=== PATIENT | male | born 1965 | race Caucasian/White ===

== ENCOUNTER 2024-01-31 21:49 | Emergency (ER) | payer OTHER, SELFPAY ==
[2024-01-31 21:54] VITALS: BP 86/65; PULSE 92; RESP 18; TEMP 36.3; O2SAT 93
[2024-01-31 22:15] VITALS: BP 104/69; PULSE 147; RESP 27; O2SAT 91
--- NOTE | 2024-01-31 22:35 | EKG12_ITS ---
Test Reason : PALPS Blood Pressure : */* mmHG Vent. Rate : 130 BPM Atrial Rate : * BPM P-R Int : * ms QRS Dur : 88 ms QT Int : 318 ms P-R-T Axes : * 20 38 degrees QTcB Int : 467 ms Atrial fibrillation with rapid ventricular response Abnormal ECG Confirmed by Tomas Walden ([id number]), associate editor STEFANIE KINGSTON ([id number]) on 02/02/2024 9:07:06 AM Referred By: Confirmed By: Tomas Walden
[2024-01-31 22:36] VITALS: BMI 33.0
--- NOTE | 2024-01-31 22:42 | RAD_ITS ---
INDICATION: Atrial fibrillation with RVR EXAMINATION/TECHNIQUE: X-RAY - XR Chest 1 View COMPARISON: FINDINGS: LINES/DEVICES: None. LUNGS: No consolidation, edema or effusion. Basilar atelectasis. No pneumothorax. MEDIASTINUM AND CARDIOVASCULAR STRUCTURES: Cardiac silhouette not enlarged. Central airways and mediastinal contour are unremarkable. BONES AND SOFT TISSUES: Degenerative vertebral changes. RAD/Chest 1 View (Portable) IMPRESSION: Basilar atelectasis. Electronically Signed: Nirav Beach DO at 23:19 EST ,
[2024-01-31 22:46] LABS: Absolute Neutrophil Count 3.2 X10^3/uL (2.0-7.7); Basophil# 0.07 X10^3/uL; Eosinophil# 0.22 X10^3/uL; Eosinophils% 3.2 % (0-5); Hematocrit 40.3 % (40-54); Hemoglobin 14.2 g/dL (13.0-16.5); Lymphocyte % 38.4 % (19-41); Mean Corp Hgb Conc 35.2 g/dL (32-36); Mean Corpuscular Hgb 32.6 pg (27.0-32.0); Mean Corpuscular Volume 92.4 fL (80-94); Monocyte# 0.64 X10^3/uL; Monocyte% 9.5 % (0-10); NRBC Flagged by Analyzer 0 % (0-5); Neutrophil # 3.23 X10^3/uL (2.7-7.7); Neutrophil % 47.8 % (47-70); Platelet Count 280 K/mm3 (150-450); RBC Distribution Width CV 12.7 % (11.6-14.6); RBC Distribution Width SD 43.3 fl (35.1-43.9); Red Blood Count 4.36 M/mm3 (4.6-6.2); White Blood Count 6.8 K/mm3 (4.4-11.0)
[2024-01-31 22:56] LABS: Prothrombin Time (Protime)PT. 12.7 SECONDS (11.7-14.9)
[2024-01-31 22:57] VITALS: BP 113/66; PULSE 160; RESP 21; O2SAT 94
[2024-01-31 22:57] LABS: Partial Thromboplast Time 28.9 Seconds (24.1-36.2)
[2024-01-31] MEDS: dilTIAZem 25 MG/5 ML Vial 20 MG IV BOLUS (23:07)
[2024-01-31 23:08] LABS: BNP,B-Type NATRIURETIC PEPTIDE 50.7 pg/mL (0-100)
[2024-01-31 23:14] VITALS: BP 102/62; PULSE 103; RESP 16; O2SAT 94
[2024-01-31 23:15] LABS: BUN 18 mg/dL (7-18); BUN/Creat Ratio 18.8 RATIO (10-20); Creatinine, Serum 0.96 mg/dL (0.70-1.30); Estimated Creatinine Clearance 102.77 ml/min; Glucose 113 mg/dL (74-106)
[2024-01-31 23:16] LABS: Calcium,Total 9.1 mg/dL (8.5-10.1); Chloride 106 mmol/L (98-107); Potassium 3.5 mmol/L (3.5-5.1); Sodium Level 139 mmol/L (136-145); Troponin-I HS 5 pg/mL (3.0-78.0)
--- NOTE | 2024-01-31 23:41 | EKG12_ITS ---
Test Reason : REPEAT Blood Pressure : */* mmHG Vent. Rate : 78 BPM Atrial Rate : 78 BPM P-R Int : 162 ms QRS Dur : 92 ms QT Int : 360 ms P-R-T Axes : 32 19 47 degrees QTcB Int : 410 ms Normal sinus rhythm Normal ECG Confirmed by Tomas Walden ([id number]), assignment editor STEFANIE KINGSTON ([id number]) on 02/02/2024 9:07:44 AM Referred By: Confirmed By: Tomas Walden
--- NOTE | 2024-01-31 23:41 | ED.VIS.CHEST ---
HPI History of Present Illness Chief Complaint: Palpitations Narrative Narrative: Chief complaint and HPI: Palpitations. 58-year-old male with history of paroxysmal atrial fibrillation not on anticoagulation but on aspirin presents for evaluation of palpitations. Patient states that he is usually in normal sinus rhythm but occasionally converts into atrial fibrillation with RVR. Has never had an ablation. Has never required electrical cardioversion. Patient does not follow with a short haul driver and instead follows with his PCP. He is on metoprolol 25 mg daily. Patient states that this evening he could tell that he converted into atrial fibrillation. He states that he waited it out hoping that it would resolve however it did not which is why he presents today. Denies any shortness of breath, chest pain, nausea, vomiting. Review of systems: See HPI Medications: As listed on the chart Allergies: As listed on the chart PFSH: Per chart Vital signs: As listed on the chart. Reviewed. Physical exam: Gen: A&O x3, NAD Head: Normocephalic, atraumatic Eyes: No sclera icterus, conjunctiva clear ENT: Moist mucous membranes Neck: Trachea midline, No JVD CV: Tachycardic, irregular rhythm, no murmurs, no peripheral edema Resp: Lungs CTA BL, no w/r/c GI: Abd soft, non-distended, non-tender, no r/r/g Musc: Full ROM, no deformity Skin: Warm, dry Neuro: Alert, oriented, grossly intact, sensation intact Psych: Cooperative, appropriate mood and affect [facility] Medical History (Updated 01/31/24 @ 23:[address] Bert Landeros, ) Toenail fungus A-fib Allergy/AdvReac Type Severity Reaction Status Date / Time No Known Allergies Allergy Verified 01/31/24 21:54 Social History Smoking Status: Former smoker EXAM Physical Exam Const Vital Signs: 01/31/24 21:54 01/31/24 22:13 01/31/24 22:15 Temperature 97.4 F L Temperature Source Temporal Pulse Rate 92 147 H Respiratory Rate 18 27 H Respiratory Effort Normal Blood Pressure 86/65 L 104/69 Blood Pressure Mean 72 80 Pulse Ox 93 91 Oxygen Delivery Method Room Air Room Air 01/31/24 22:57 01/31/24 23:14 Temperature Temperature Source Pulse Rate 160 H 103 H Respiratory Rate 21 H 16 Respiratory Effort Blood Pressure 113/66 102/62 Blood Pressure Mean 81 75 Pulse Ox 94 94 Oxygen Delivery Method Room Air Room Air MDM MDM MDM Narrative Medical decision making narrative: 58-year-old male with history of paroxysmal atrial fibrillation not on anticoagulation but on aspirin presents for evaluation of palpitations. Patient states he feels that he is in atrial fibrillation. On presentation, patient is in atrial fibrillation with RVR. Heart rate anywhere from the 120s to the 180s. Originally patient had one hypotensive blood pressure however blood pressure improved. Blood pressure is in the low 100s. Patient states this is his baseline. IV Cardizem ordered for rate control. Laboratory workup was ordered to assess for electrolyte abnormality, ACS, CHF. CBC without leukocytosis or anemia. Coagulation panel unremarkable. BMP unremarkable. Troponin unremarkable. BNP unremarkable. Chest x-ray reviewed see below. Shortly after receiving IV Cardizem, patient cardioverted into normal sinus rhythm. His blood pressure is at his baseline. Cardiology was contacted and I spoke with Dr. Walden to see if there should be any changes in the patient's home medication. Given that patient patient's blood pressure is in the low 100s does not recommend increasing metoprolol. He needs to follow-up with his PCP outpatient. Patient was updated of all results and confirmed understanding of plan. Patient will be referred to cardiology as well to discuss future options for possible ablation. He confirmed understanding. Return precautions explained. Patient's [id number] score is low and therefore he does not need anticoagulation. He needs to continue his aspirin. He confirmed understanding. EKG: Interpreted by me/EM physician: EKG shows atrial fibrillation with RVR. Heart rate 130. He EKG shows normal sinus rhythm without any acute ischemic changes. Heart rate 78. Diagnostic: Interpreted by me/EM physician: Chest x-ray without pneumonia, effusion, cardiomegaly, pneumothorax Impression: 1. A-fib with RVR converted to normal sinus rhythm with IV Cardizem 2. History of paroxysmal atrial fibrillation Lab Data Labs: Laboratory Results - last 24 hr 01/31/24 22:05 WBC 6.8 RBC 4.36 L Hgb 14.2 Hct 40.3 MCV 92.4 MCH 32.6 H MCHC 35.2 RDW Std Deviation 43.3 RDW Coeff of Margret 12.7 Plt Count 280 MPV 10.0 Immature Gran % (Auto) 0.100 Neut % (Auto) 47.8 Lymph % (Auto) 38.4 Avery % (Auto) 9.5 Eos % (Auto) 3.2 Baso % (Auto) 1.0 Absolute Neuts (auto) 3.2 Absolute Lymphs (auto) 2.60 Nucleated RBC % 0 PT 12.7 INR 1.0 APTT 28.9 Sodium 139 Potassium 3.5 Chloride 106 Carbon Dioxide 23.0 Anion Gap 10 BUN 18 Creatinine 0.96 Estim Creat Clear Calc 102.77 Est GFR (MDRD) Af Amer 104 Est GFR (MDRD) Non-Af 86 BUN/Creatinine Ratio 18.8 Glucose 113 H Calcium 9.1 Troponin I High Sens 5 B-Natriuretic Peptide 50.7 Radiography Diagnostic Testing: Clinical Impression(s) from Imaging Studies Chest X-Ray 01/31/24 22:42 IMPRESSION: Basilar atelectasis. Electronically Signed: Nirav Beach DO at 23:19 EST Reading Location ID and State: [facility] / [place] Tel [phone], Service support , Discharge Plan Triage Chief Complaint: Palpitations ED Provider: Bert Landeros Dx/Rx/DC Orders Clinical Impression: Atrial fibrillation with RVR Instructions: ED AFIB, ED Palpitations Primary Care Provider: [facility],[place] Referrals: Tomas Walden MD [Med Staff - Active Staff] - 3-5 Days [facility],[place] [Primary Care Provider] - 3-5 Days Activity Restrictions/Additional Instructions: Follow-up with your primary care physician. Follow-up with cardiology to possibly have discussions about ablation in the future. Continue to take your daily aspirin for your A-fib. Print Language: Tuvaluan Disposition Disposition: Home, Self Care
[2024-01-31 23:47] VITALS: BP 111/63; PULSE 84; RESP 16; TEMP 36.4; O2SAT 93
[2024-02-07 23:10] LABS: Anion Gap 9 (5-15); EST Glomerular Filtration Rate 86 mL/min (>60); Est Glom Filt Rate - Afr Amer 104 mL/min (>60)
== END 2024-01-31 23:48 | disposition home or self-care (01) ==
PROVIDERS: Emergency Provider Surgery; Visit Provider Surgery
DX: I48.0 Paroxysmal atrial fibrillation (principal); Z79.82 Long term (current) use of aspirin; Z87.891 Personal history of nicotine dependence; Z79.899 Other long term (current) drug therapy
CPT/HCPCS: 71045; 80048; 83880; 84484; 85025; 85610; 85730; 93005; 96374; 99284; A4216